=== PATIENT | male | born 1980 | race African-American/Black ===

== ENCOUNTER 2017-07-28 20:54 | Emergency (ER) | payer OTHER ==
[~2017-07-28] VITALS: Ht 182.9 cm; Wt 147.4 kg
[2017-07-28] MEDS ORDERED: NORCO 5-325 TA1 EACH PO (21:04)
[2017-07-28] MEDS ORDERED: KEFLEX500 M1 PO (21:04)
== END 2017-07-28 21:45 | disposition home or self-care (01) ==
LOC: ER 20:54
DX: L03.116 Cellulitis of left lower limb (principal)